=== PATIENT | male | born 1980 | race American Indian/Alaskan Native ===

== ENCOUNTER 2020-08-02 03:58 | Emergency (ER) | payer OTHER ==
[2020-08-02 04:43] VITALS: BP 137/85
--- NOTE | 2020-08-02 05:33 | XRay Report ---
Left forearm 2 views Indication: Pinned arm at work Findings: There is no fracture, subluxation, or other acute osseous radiographic abnormality of the left forear m. There is soft tissue swelling. Signer Name: Moise Couch MD Signed: 08/02/2020 5:28 AM Workstation Name: [id number]
[2020-08-02] MEDS ORDERED: LIDOCAINE (1%) 10 MG/1 ML VIAL 20 ML MDV INFILTRATI ONE (07:52)
[2020-08-02] MEDS ORDERED: SODIUM CHLORIDE 0.9% IRR 500 ML BOTTLE IR ONE (07:52)
[2020-08-02] MEDS ORDERED: HYDROcodone/ACETAMINOPHEN 5-325 MG TAB PO ONE (08:00)
--- NOTE | 2020-08-02 08:00 | Emergency Department Report ---
ED General Adult HPI - General Chief complaint: Extremity Injury, Upper Stated complaint: LAC TO RT FOREARM Time Seen by Provider: 08/02/20 07:38 Source: patient, EMS Mode of arrival: Ambulatory Limitations: No Limitations - History of Present Illness Initial comments: 40-year-old -[place] male patient presents with complaints of left arm laceration and pain after a work-related injury last night. 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 He states his last tetanus vaccine was 2 years ago. Patient rates his pain as a 9/10 in severity. He denies any numbness/tingling/weakness or difficulty moving his arm or hand -: Sudden - Related Data Allergies Allergy/AdvReac Type Severity Reaction Status Date / Time No Known Allergies Allergy Unverified 08/02/20 04:40 ED Review of Systems ROS: Stated complaint: LAC TO RT FOREARM Other details as noted in HPI Constitutional: denies: malaise Cardiovascular: chest pain Musculoskeletal: denies: arthralgia Skin: as per HPI Neurological: denies: numbness, paresthesias Hematological/Lymphatic: denies: easy bleeding ED Physical Exam - General Limitations: No Limitations General appearance: alert, in no apparent distress - Head Head exam: Present: atraumatic, normocephalic - Eye Eye exam: Present: normal appearance - Respiratory Respiratory exam: Absent: respiratory distress - Cardiovascular Cardiovascular Exam: Present: regular rate - Extremities Exam Extremities exam: Present: other (Approximately 10 cm linear laceration noted to left inner proximal forearm without active bleeding or obvious foreign bodies noted; lacerated muscle noted; unable to visualize distal portion of lacerated muscle; muscle contracts with relaxation of the left palm and relaxes with flexion of the palm) - Back Exam Back exam: Present: full ROM - Neurological Exam Neurological exam: Present: alert, oriented X3, normal gait, other (Patient has normal sensation of the left forearm and hand along with normal range of motion of the left wrist, palm, and fingers; radial and ulnar pulses noted at the wrist) - Psychiatric Psychiatric exam: Present: normal affect, normal mood - Skin Skin exam: Present: warm, dry, intact, normal color. Absent: rash ED Course Vital Signs 08/02/20 04:40 Temperature 97.6 F Pulse Rate 74 Respiratory 15 Rate Blood Pressure 137/85 O2 Sat by Pulse 97 Oximetry - Procedure Description Procedures done: Left forearm prepped with Betadine. 12 cc of lidocaine 1% without epi used to anesthetize area. Wound irrigated thoroughly with 300 cc of normal saline. Wound dressed in a sterile dressing. ED Medical Decision Making - Radiology Data 40-year-old -[place] male patient presents with complaints of left arm laceration and pain after a work-related injury last night. 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 He states his last tetanus vaccine was 2 years ago. Patient rates his pain as a 9/10 in severity. He denies any numbness/tingling/weakness or difficulty moving his arm or hand - Medical Decision Making 40-year-old -[place] male patient presents with complaints of left arm laceration and pain after a work-related injury last night. 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 He states his last tetanus vaccine was 2 years ago. Patient rates his pain as a 9/10 in severity. He denies any numbness/tingling/weakness or difficulty moving his arm or hand 10 cm laceration noted on exam with lacerated muscle. Discussed patient with Dr. Buck who recommended consultation with [facility]. Spoke with Dr. Oj Gould who recommends transport to [facility] for surgical intervention. Patient placed in a sterile dressing. His vitals are stable and he is well-appearing at this time. Critical care attestation.: If time is entered above; I have spent that time in minutes in the direct care of this critically ill patient, excluding procedure time. ED Disposition Clinical Impression: Laceration of arm Qualifiers: Encounter type: initial encounter Laterality: left Qualified Code(s): S41.112A - Laceration without foreign body of left upper arm, initial encounter Disposition: DC-01 TO HOME OR SELFCARE Is pt being admited?: No Condition: Stable Instructions: Wound Care, Adult, Laceration Care, Adult, [id number] Referrals: PRIMARY CARE, [Primary Care Provider] - 3-5 Days
== END 2020-08-02 11:00 | disposition home or self-care (01) ==
LOC: ED 03:58
DX: S51.811A Laceration without foreign body of right forearm, initial encounter (principal); X58.XXXA Exposure to other specified factors, initial encounter; Y93.89 Activity, other specified; Y92.89 Other specified places as the place of occurrence of the external cause; Y99.0 Civilian activity done for income or pay